=== PATIENT | female | born 1990 ===

== ENCOUNTER → 2018-12-24 | Outpatient (CLI) | payer BC ==
[2018-12-28 13:07] LABS: HPV 16 Negative (Negative); HPV 18 Negative (Negative); HPV OTHER HR TYPES Negative (Negative)
== END | disposition home or self-care (01) ==
LOC: LAB 11:15 → LAB SHORT 11:15
PROVIDERS: Obstetrics & Gynecology
DX: Z01.419 Encounter for gynecological examination (general) (routine) without abnormal findings (principal)
CPT/HCPCS: 87624; G0123

== ENCOUNTER → 2024-02-29 | Outpatient (CLI) | payer OTHER | LOC: LAB SHORT 11:57 → LAB 11:57 | DX: N84.1 Polyp of cervix uteri (principal) | CPT/HCPCS: 88305 ==

== ENCOUNTER → 2024-08-29 | Outpatient (CLI) | payer OTHER | LOC: LAB SHORT 17:19 → LAB 17:19 | DX: O09.93 Supervision of high risk pregnancy, unspecified, third trimester (principal) | CPT/HCPCS: 87081; 87150 ==

== ENCOUNTER 2024-09-22 19:35 | Inpatient (IN) | payer OTHER ==
[~2024-09-22] VITALS: Ht 165.1 cm; Wt 80.0 kg
[2024-09-22] MEDS ORDERED: OXYTOCIN/RINGER'S LACTATE 500 ML IV PRN (20:00)
[2024-09-22] MEDS ORDERED: Methylergonovine Maleate 0.2MG / ML 1ML Amp IM PRN (20:00)
[2024-09-22] MEDS ORDERED: Ondansetron HCl 2 MG / ML 2ML Vial IV PRN (20:00)
[2024-09-22] MEDS ORDERED: ePHEDrine Sulfate 50 MG/ML 1ML Injection XX PRN (20:00)
[2024-09-22] MEDS ORDERED: Tranexamic Acid 100 ML IV SCH (20:00)
[2024-09-22] MEDS ORDERED: Carboprost Tromethamine 250 MCG/ML 1ML Amp IM PRN (20:00)
[2024-09-22] MEDS ORDERED: Oxytocin 10 Unit / ML Vial IM PRN (20:00)
[2024-09-22] MEDS ORDERED: FentaNYL 2mcg/ml-Bup 0.1% Epd 250 ML EPI PRN (20:00)
[2024-09-22] MEDS ORDERED: OXYTOCIN/RINGER'S LACTATE 500 ML IV SCH (20:05)
[2024-09-22 20:28] VITALS: BP 120/82
[2024-09-22 20:53] LABS: BASOPHILS ABSOLUTE AUTO 0.02 K/mm3 (0.00-0.23); BASOPHILS PERCENT AUTO 0 % (0-2); EOSINOPHILS ABSOLUTE AUTO 0.16 K/mm3 (0.00-0.68); EOSINOPHILS PERCENT AUTO 2 % (0-6); Hematocrit 32.6 % (33.0-51.0); Hemoglobin 11.2 g/dL (11.5-16.0); IMMATURE GRAN ABSOLUTE AUTO 0.06 K/mm3 (0.00-0.10); IMMATURE GRAN PERCENT AUTO 1 % (0-1); LYMPHOCYTES ABSOLUTE AUTO 2.30 K/mm3 (0.84-5.20); LYMPHOCYTES PERCENT AUTO 21 % (21-46); MONOCYTES ABSOLUTE AUTO 0.77 K/mm3 (0.16-1.47); MONOCYTES PERCENT AUTO 7 % (4-13); Mean Corpuscular HGB Conc 34.4 g/dL (31.5-36.5); Mean Corpuscular Volume 85 fL (80-100); NEUTROPHILS ABSOLUTE AUTO 7.70 K/mm3 (1.96-9.15); NEUTROPHILS PERCENT AUTO 70 % (41-73); NRBC ABSOLUTE 0.00 K/mm3 (0.00-0.02); NRBC Auto 0.0 /100 WBC (0.0-0.2); Platelet Count 183 K/mm3 (150-400); RDW Coefficient Variation 12.6 % (11.7-14.2); RDW Standard Deviation 38.8 fL (35.1-46.3)
[2024-09-22] MEDS ORDERED: VITAMIN D5000 UNIT PO (21:01)
[2024-09-22] MEDS ORDERED: FERSU300 PO (21:02)
[2024-09-22 23:54] VITALS: BP 121/75
[2024-09-22] MEDS ORDERED: CeFAZolin Sodium 2,000 MG in NS 100 ML IV SCH (23:55)
[2024-09-23] VITALS (15 sets, daily range): BP systolic 94–138; BP diastolic 65–81
[2024-09-23] MEDS ORDERED: FentaNYL Citrate 50 MCG/ML 2 ML Injection ONE (01:16)
[2024-09-23] MEDS ORDERED: Oxytocin 10 Unit / ML Vial ONE (01:50)
[2024-09-23 02:11] LABS: PCO2 Cord - Venous 44.2 mmHg (40-50); PO2 Cord - Venous 26.8 mmHg (28-32); pH Umbilical Cord - Venous 7.33 (7.26-7.35)
[2024-09-23] MEDS ORDERED: Ketorolac Tromethamine 30mg Vial ONE (02:17)
[2024-09-23] MEDS ORDERED: Phenylephrine HCl 100 MCG/ML-NS 10MLSYR (1MG/10ML) ONE (02:17)
[2024-09-23] MEDS ORDERED: Ondansetron HCl 2 MG / ML 2ML Vial ONE (02:35)
[2024-09-23] MEDS ORDERED: Dexamethasone Sod Phos 10 MG/ML 1ML VIAL ONE (02:35)
[2024-09-23] MEDS ORDERED: Methylergonovine Maleate 0.2MG / ML 1ML Amp IM PRN (02:50)
[2024-09-23] MEDS ORDERED: OXYTOCIN/RINGER'S LACTATE 500 ML IV SCH ×2 (02:50→02:55)
[2024-09-23] MEDS ORDERED: Morphine Sulfate 4 MG/1 ML Injection IV PRN (02:55)
[2024-09-23] MEDS ORDERED: Ondansetron HCl 2 MG / ML 2ML Vial IV PRN (02:55)
[2024-09-23] MEDS ORDERED: Magnesium Hydroxide Conc 10 ML UDC PO PRN (02:55)
[2024-09-23] MEDS ORDERED: Ketorolac Tromethamine 30mg Vial IV SCH (03:00)
[2024-09-23] MEDS ORDERED: Carboprost Tromethamine 250 MCG/ML 1ML Amp IM PRN (03:00)
[2024-09-23] MEDS ORDERED: Tranexamic Acid 100 ML IV PRN (03:20)
[2024-09-23] MEDS ORDERED: Ketorolac Tromethamine 30mg Vial IV PRN (03:55)
[2024-09-23 06:20] LABS: BASOPHILS ABSOLUTE AUTO 0.05 K/mm3 (0.00-0.23); BASOPHILS PERCENT AUTO 0 % (0-2); EOSINOPHILS ABSOLUTE AUTO 0.01 K/mm3 (0.00-0.68); EOSINOPHILS PERCENT AUTO 0 % (0-6); Hematocrit 32.4 % (33.0-51.0); Hemoglobin 10.9 g/dL (11.5-16.0); IMMATURE GRAN ABSOLUTE AUTO 0.11 K/mm3 (0.00-0.10); IMMATURE GRAN PERCENT AUTO 1 % (0-1); LYMPHOCYTES ABSOLUTE AUTO 1.09 K/mm3 (0.84-5.20); LYMPHOCYTES PERCENT AUTO 6 % (21-46); MONOCYTES ABSOLUTE AUTO 0.42 K/mm3 (0.16-1.47); MONOCYTES PERCENT AUTO 2 % (4-13); Mean Corpuscular HGB Conc 33.6 g/dL (31.5-36.5); Mean Corpuscular Volume 86 fL (80-100); NEUTROPHILS ABSOLUTE AUTO 16.69 K/mm3 (1.96-9.15); NEUTROPHILS PERCENT AUTO 91 % (41-73); NRBC ABSOLUTE 0.00 K/mm3 (0.00-0.02); NRBC Auto 0.0 /100 WBC (0.0-0.2); Platelet Count 164 K/mm3 (150-400); RDW Coefficient Variation 12.7 % (11.7-14.2); RDW Standard Deviation 40.3 fL (35.1-46.3)
[2024-09-23] MEDS ORDERED: Prenatal Vit/FE Fumarate/FA 1 Tab PO SCH (09:00)
[2024-09-24 00:33] VITALS: BP 120/75
[2024-09-24 09:18] VITALS: BP 130/78
[2024-09-24 12:25] VITALS: BP 121/69
[2024-09-24 16:33] VITALS: BP 125/81
[2024-09-24 19:31] VITALS: BP 124/77
[2024-09-25 00:31] VITALS: BP 112/69
[2024-09-25 04:50] VITALS: BP 129/65
[2024-09-25 10:57] VITALS: BP 118/71
[2024-09-25 12:33] VITALS: BP 124/66
[2024-09-25] MEDS ORDERED: ACET500 PO (15:51)
[2024-09-25] MEDS ORDERED: DOCU100 PO (15:51)
[2024-09-25] MEDS ORDERED: LANOLIN40 GM TOP (15:52)
[2024-09-25] MEDS ORDERED: IBUP800 PO (15:52)
[2024-09-25] MEDS ORDERED: PRENATAL TABLE1 EAC2 PO (15:54)
[2024-09-25] MEDS ORDERED: OXAYDO5 M1 PO (15:54)
== END 2024-09-25 16:22 | disposition home or self-care (01) | DRG 788 ==
LOC: OBS 19:35 → BC 19:45 → OBS 19:54 → BC 19:55
PROVIDERS: ADMIT Obstetrics & Gynecology
PROC: 10D00Z1 Extraction of Products of Conception, Low, Open Approach (ICD-10-PCS; principal; 2024-09-23 01:00)
DX: O48.0 Post-term pregnancy (principal); O99.02 Anemia complicating childbirth; D50.9 Iron deficiency anemia, unspecified; Z87.891 Personal history of nicotine dependence; Z3A.40 40 weeks gestation of pregnancy; Z37.0 Single live birth
CPT/HCPCS: 36415; 82803; 85025; 86850; 86900; 86901; A9270; J0690; J1100; J1885; J2270; J2371; J2405; J2590; J3010; J7120